=== PATIENT | female | born 1970 | race Caucasian/White ===

== ENCOUNTER 2020-08-18 08:29 | Outpatient (CLI) | payer OTHER | END 2020-08-18 08:30 | disposition home or self-care (01) | LOC: CSHMAMMO 08:29 | PROVIDERS: ATTEND Internal Medicine | DX: Z12.31 Encounter for screening mammogram for malignant neoplasm of breast (principal) | CPT/HCPCS: 77063; 77067 ==

== ENCOUNTER 2021-08-25 08:35 | Outpatient (CLI) | payer OTHER | END 2021-08-25 08:36 | disposition home or self-care (01) | LOC: CSHMAMMO 08:35 | PROVIDERS: ATTEND Internal Medicine | DX: Z12.31 Encounter for screening mammogram for malignant neoplasm of breast (principal); Z80.3 Family history of malignant neoplasm of breast | CPT/HCPCS: 77063; 77067 ==

== ENCOUNTER 2023-11-07 09:32 | Outpatient (CLI) | payer OTHER | END 2023-11-07 09:33 | disposition home or self-care (01) | LOC: CSHMAMMO 09:32 | PROVIDERS: ATTEND Internal Medicine | DX: Z12.31 Encounter for screening mammogram for malignant neoplasm of breast (principal); Z80.3 Family history of malignant neoplasm of breast | CPT/HCPCS: 77063; 77067 ==